=== PATIENT | female | born 1955 | race Caucasian/White ===

== ENCOUNTER 2018-09-24 06:00 | Day surgery (SDC) | payer MEDICARE, OTHER ==
[~2018-09-24] VITALS: Ht 157.5 cm; Wt 79.8 kg
[~2018-09-24 06:00] MED LIST: ATORVASTATIN CA40 MG PO; CELECOXIB200 MG PO; EPIPEN 2-P0.3 MG/0.3 IM; FLUOXETINE HCL20 MG PO; OMEPRAZOLE20 MG PO; PREDNISONE20 MG PO; SIMVASTATIN20 MG; [UNRECOGNIZED DRUG - OTHER] PO
--- NOTE | 2018-09-24 08:00 | NUR ---
09/24/18 0800 Sera Pitt 0755-PATIENT ARRIVED TO PACU ON 8L MASK REACTIVE TO VOICE PLACED ON 3L NC PATIENT APNEIC TAKES A DEEP BREATHE WHEN INSTRUCTED EYES CLOSED. ABDOMEN SOFT.
--- NOTE | 2018-09-24 14:35 | NUR ---
PT ALERT, ORIENTED AND SUPPORTED BY HER SILVESTRE. PT SEEMS CALM, NEITHER SEEM TO HAVE CONCERNS. WOULD LIKE SOME ANSWERS, REQUESTED PRAYER, WILL FOLLOW NEEDED
--- NOTE | 2018-09-24 16:51 | OR ---
[facility] [address] [place], [place] [address] Signed DATE OF OPERATION: 09/24/2018 SURGEON: Chelsi Vidales MD PREOPERATIVE DIAGNOSES: 1. Esophageal dysphagia to solid foods. 2. Gastroesophageal reflux disease. 3. A tiny hiatal hernia. POSTOPERATIVE DIAGNOSES: 1. Mild diffuse gastritis. 2. Tiny hiatal hernia. PROCEDURES PERFORMED: EGD with CLOtest and biopsies of the antrum and GE junction. ESTIMATED BLOOD LOSS: None. INDICATIONS: Pinky is a 63-year-old female who has been having trouble with esophageal dysphagia last couple of months. She said it is mainly to solid foods and to her pills. However, she does take all her pills at once. She is very concerned because her dexcjl-sw-eke of esophageal cancer. She had a colonoscopy back in 2014, so she is familiar with endoscopy. She is happy to know there were no laxatives required for this procedure. She had been to her primary care provider and was asked to see me for the upper endoscopy. I had met with Pinky in the office and reviewed the above findings with her. We did send her for a barium swallow and she did very well. There was no aspiration. Her esophageal motility was unremarkable and she probably has just a tiny hiatal hernia. In the office, I gave her a pamphlet on upper endoscopy and we looked at that together along with the risks including, but not limited to gas bloating, crampy abdominal pain, bleeding, perforation, requiring surgery, and missed diagnosis. We also discussed the need for IV conscious sedation. She had expressed understanding and wished to proceed. DESCRIPTION OF PROCEDURE: Pinky was taken into our endoscopy suite and placed in a supine semi-recumbent position. The posterior oropharynx was anesthetized with Hurricaine spray. A bite block was utilized for the case. The adult gastroscope was introduced and advanced under direct visualization of the camera out into the third portion of the duodenum Electronically Signed By: CHELSI VIDALES MD 09/24/18 1651 PATIENT NAME: PINKY GUY OPERATIVE REPORT DATE OF : 51 REPORT #: [id number] PHYSICIAN: CHELSI VIDALES MD PCP: TWILA BATEMAN PAC REPORT IS CONFIDENTIAL AND NOT TO BE RELEASED WITHOUT AUTHORIZATION [facility] [address] [place], [place] [address] Signed without difficulty. The duodenum and pyloric channel were unremarkable. The stomach showed mild diffuse erythematous changes consistent with mild gastritis. We took a biopsy of the antrum for CLOtest as well as pathologic review. Upon retroflexion of scope, she really does not have a true hiatal hernia. A little bit of the stomach has come in on the one side, but otherwise it is fairly small. The scope was withdrawn up through the area of the GE junction, which was compliant without stricture. We saw no gastric or esophageal varices. She did have a little bit of disruption to the Z-line and some mild granulation tissue. We went and took a biopsy right at the Z-line. Her distal, middle, and upper esophagus were unremarkable. After this, the gas was suctioned out and gastroscope removed. Pinky tolerated the procedure quite well. RECOMMENDATIONS: I will see Pinky back in my office in 7 to 14 days to review her barium swallow and the upper endoscopy results. Cehlsi Vidales MD ALB/MODL /[id number] cc: SHIVANI Ventura MD Copies: CHELSI VIDALES MD ~ Electronically Signed By: CHELSI VIDALES MD 09/24/18 1651 PATIENT NAME: PINKY GUY OPERATIVE REPORT DATE OF : 51 REPORT #: [id number] PHYSICIAN: CHELSI VIDALES MD PCP: TWILA BATEMAN PAC REPORT IS CONFIDENTIAL AND NOT TO BE RELEASED WITHOUT AUTHORIZATION
== END 2018-09-24 08:45 | disposition home or self-care (01) ==
LOC: OPS 06:00 → DS 06:00 → OPS 06:45 → DS 06:45 → OPS 08:45
PROVIDERS: Colon & Rectal Surgery
PROC: 0DB78ZX Excision of Stomach, Pylorus, Via Natural or Artificial Opening Endoscopic, Diagnostic (ICD-10-PCS; 2018-09-24)
PROC: 0DB48ZX Excision of Esophagogastric Junction, Via Natural or Artificial Opening Endoscopic, Diagnostic (ICD-10-PCS; principal; 2018-09-24 06:45)
DX: K29.50 Unspecified chronic gastritis without bleeding (principal); K44.9 Diaphragmatic hernia without obstruction or gangrene; K21.0 Gastro-esophageal reflux disease with esophagitis; I25.10 Atherosclerotic heart disease of native coronary artery without angina pectoris; E78.5 Hyperlipidemia, unspecified; F41.9 Anxiety disorder, unspecified; M17.10 Unilateral primary osteoarthritis, unspecified knee; Z79.899 Other long term (current) drug therapy
CPT/HCPCS: 86677; 99153; G0500; J2250; J3010; J7120

== ENCOUNTER 2019-09-19 09:56 | Emergency (ER) | payer MEDICARE, OTHER ==
[~2019-09-19] VITALS: Ht 157.5 cm; Wt 80.3 kg
[~2019-09-19 09:56] MED LIST changes: +ASPIR 8181 MG PO; +ASPIRIN EC325 MG PO; +GABAPENTIN600 MG PO; +OMEGA 3 1,0001 EACH PO; +OXYCODONE HCL5 MG PO; +SENNA LAX8.6 MG PO; +VITAMIN D250 MCG PO; -[UNRECOGNIZED DRUG - OTHER] PO
--- OUTSIDE RECORDS SUMMARY | 2019-09-19 10:00 | XMS ---
PreManage Notification: PINKY GUY Security In Classroom Tutor Events No recent Security Events currently on file CRITERIA MET - [facility] CARE PROVIDERS Laureano Arshad Treatment Current PHONE: Unknown Ta [place] Rosemarie Current Orthopedic Surgery \T\ Fracture Clinic PHONE: Unknown Yasmin has no Care Guidelines for this patient. Sonja VISIT COUNT (12 MO.) Mirta Marie TOTAL 1 NOTE: Visits indicate total known visits. ED/UCC VISIT TRACKING (12 MO.) 09/19/2019 09:[address] [facility] OR TYPE: Emergency COMPLAINT: - HEAVINESS CHEST AND ARMS INPATIENT VISIT TRACKING (12 MO.) No inpatient visits to display in this time frame [email or web address]
--- NOTE | 2019-09-20 16:36 | EKG ---
[facility] [address] [facility] [place], [place] [address] Signed Normal sinus rhythm Normal ECG Confirmed by PASTORA HSIEH MD ([id number]) on 09/20/2019 4:35:56 PM Electronically Signed By: PASTORA HSIEH MD 09/20/19 1636 PATIENT NAME: PINKY GUY JANELL Electrocardiogram DATE OF : 51 PHYSICIAN: PASTORA HSIEH MD REPORT #: [id number] REPORT IS CONFIDENTIAL AND NOT TO BE RELEASED WITHOUT AUTHORIZATION
== END 2019-09-19 14:45 | disposition home or self-care (01) ==
LOC: ED 09:56
DX: R07.89 Other chest pain (principal); R06.02 Shortness of breath; Z79.899 Other long term (current) drug therapy; Z79.82 Long term (current) use of aspirin
CPT/HCPCS: 36415; 71045; 71260; 80053; 83880; 84484; 85025; 85379; 93005; 93010; 93971; 99285-25; Q9967

== ENCOUNTER 2020-08-10 07:43 | Day surgery (SDC) | payer MEDICARE, OTHER ==
[~2020-08-10] VITALS: Ht 157.5 cm; Wt 83.6 kg
[~2020-08-10 07:43] MED LIST changes: +CALCIUM500 MG PO; +DRY EYE OMEGA1 EACH PO; +OLIVE LEAF EXT250 MG PO; +PHILLIPS' COLO1 EACH PO
--- NOTE | 2020-08-10 09:12 | NUR ---
08/10/20 0912 Reva Mac 0909 PATIENT ARRIVES TO PACU SLEEPING. OPENS EYES WITH VERBAL STIMULI. BACK TO SLEEP WHEN NOT STIMULATED. RESP EVEN AND UNLABORED, NC AT 3 LITERS.
--- NOTE | 2020-08-10 09:58 | OR ---
[facility] [address] [place], [place] [address] Signed DATE OF OPERATION: 08/10/2020 SURGEON: Chelsi Vidales MD PREOPERATIVE DIAGNOSES: 1. Personal history of colonic poly[place] [address] Slater. 2. Melanosis coli. 3. Chronic constipation. POSTOPERATIVE DIAGNOSES: 1. Severe melanosis coli. 2. Minimal internal hemorrhoids. PROCEDURE: Colonoscopy with cold biopsy x1, proximal right colon. ESTIMATED BLOOD LOSS: None. INDICATIONS: Pinky is a 65-year-old female, asked to see me for followup colonoscopy. In 2014, she had an adenomatous polyp removed with Dr. Slater. She has also described melanosis coli. She describes constipation her whole life. She has switched over to a Valdes' Colon cleanse. She tells me she has no lower GI complaints. She said her dad lived to be 95. There is no family history of colon cancer or polyps. I gave her a pamphlet in the office on colonoscopy and we looked at that together along with the risks including, but not limited to gas bloating, crampy abdominal pain, bleeding, perforation requiring surgery, and missed diagnosis. We also discussed the need for IV conscious sedation. She had expressed understanding and wished to proceed. PROCEDURE NOTE: Pinky was taken into the endoscopy suite and placed in the left lateral decubitus position. She was given 3 mg of Versed and 100 mcg of fentanyl to cover the case. A digital rectal exam was performed and this was unremarkable. The adult colonoscope was introduced and advanced all around into the cecum under direct visualization of camera without difficulty. We can easily see her moderate to severe melanosis coli from the rectum all the way back to the cecum. We had taken pictures throughout for photodocumentation. We took a single biopsy of the proximal right colon with a cold biopsy forceps for pathologic review. There were no polyps noted. No diverticulosis. The scope had been retroflexed in the rectum. She does have minimal internal hemorrhoid Electronically Signed By: CHELSI VIDALES MD 08/10/20 0958 PATIENT NAME: PINKY GUY OPERATIVE REPORT DATE OF : 51 REPORT #: [id number] PHYSICIAN: CHELSI VIDALES MD PCP: YARELIS TRAN PA-C REPORT IS CONFIDENTIAL AND NOT TO BE RELEASED WITHOUT AUTHORIZATION [facility] [address] [place] [id number] Signed columns. After this, the gas was suctioned out and colonoscope removed. Pinky tolerated the procedure quite well. RECOMMENDATIONS: I will see Pinky back in my office in 7 to 14 days to review her results. She should consider discontinuing Valdes' Colon cleanse and moving toward a fiber product with MiraLAX as well. Chelsi Vidales MD ALB/DAQUANL /[id number] cc: MD Yarelis Otoole PA-C Copies: CHELSI VIDALES MD, CHLOE K PA-C ~ Electronically Signed By: CHELSI VIDALES MD 08/10/20 0958 PATIENT NAME: PINKY GUY JANELL OPERATIVE REPORT DATE OF : 51 REPORT #: [id number] PHYSICIAN: CHELSI VIDALES MD PCP: YARELIS TRAN PA-C REPORT IS CONFIDENTIAL AND NOT TO BE RELEASED WITHOUT AUTHORIZATION
== END 2020-08-10 09:45 | disposition home or self-care (01) ==
LOC: OPS 07:43 → DS 07:43 → OPS 09:00
PROVIDERS: ATTEND Colon & Rectal Surgery
PROC: 0DBH8ZX Excision of Cecum, Via Natural or Artificial Opening Endoscopic, Diagnostic (ICD-10-PCS; principal; 2020-08-10 09:00)
DX: K63.89 Other specified diseases of intestine (principal); D12.2 Benign neoplasm of ascending colon; K59.09 Other constipation; K64.8 Other hemorrhoids; E78.5 Hyperlipidemia, unspecified; R03.0 Elevated blood-pressure reading, without diagnosis of hypertension; F41.9 Anxiety disorder, unspecified; I25.10 Atherosclerotic heart disease of native coronary artery without angina pectoris; K21.00 Gastro-esophageal reflux disease with esophagitis, without bleeding; M17.10 Unilateral primary osteoarthritis, unspecified knee; M85.80 Other specified disorders of bone density and structure, unspecified site; Z86.010 Personal history of colon polyps
CPT/HCPCS: 88305; 99153; G0500; J0690; J2250; J3010; J7121

== ENCOUNTER 2021-05-27 09:51 | Emergency (ER) | payer MEDICARE, OTHER ==
[~2021-05-27] VITALS: Ht 157.5 cm; Wt 83.5 kg
[2021-05-27] MEDS ORDERED: ONDANSETRON ODT4 MG PO (10:15)
[2021-05-27] MEDS ORDERED: BENZONATATE100 MG PO (10:15)
[2021-05-27] MEDS ORDERED: VENTOLIN HFA18 GM INH (13:29)
[2021-05-27] MEDS ORDERED: GUAIFEN-CODEINE10 ML PO (13:29)
[2021-05-27] MEDS ORDERED: PREDNISONE20 MG PO (13:29)
--- NOTE | 2021-05-30 13:39 | EKG ---
[facility] [address] [facility] [place], [place] [address] Signed Normal sinus rhythm Normal ECG When compared with ECG of 19-SEP-2019 10:03, No significant change was found Confirmed by PASTORA HSIEH MD ([id number]) on 05/30/2021 1:39:02 PM Electronically Signed By: PASTORA HSIEH MD 05/30/21 1339 PATIENT NAME: ALBA GUYHaylee MACIEL Electrocardiogram DATE OF : 51 PHYSICIAN: PASTORA HSIEH MD REPORT #: [id number] REPORT IS CONFIDENTIAL AND NOT TO BE RELEASED WITHOUT AUTHORIZATION
== END 2021-05-27 14:00 | disposition home or self-care (01) ==
LOC: ED 09:51
DX: U07.1 COVID-19 (principal); J12.82 Pneumonia due to coronavirus disease 2019; E78.00 Pure hypercholesterolemia, unspecified; Z79.82 Long term (current) use of aspirin; Z79.899 Other long term (current) drug therapy
CPT/HCPCS: 71045; 71260; 80053; 84484; 85025; 85379; 93005; 93010; 94640; 99285-25; C9803; J1100; J7030; Q9967; U0003

== ENCOUNTER 2024-11-03 06:58 | Day surgery (SDC) | payer MEDICARE, OTHER ==
[2024-10-28 13:50] VITALS: BP 171/79
[~2024-11-03] VITALS: Ht 157.5 cm; Wt 77.3 kg
[~2024-11-03 06:58] MED LIST changes: +BAYER CHEWABLE81 MG PO; +BENZONATATE100 MG PO; +CEFUROXIME500 MG PO; +COZAAR25 MG PO; +GUAIFEN-CODEINE10 ML PO; +LACTATED RINGER'S 1,000 ML IV SCH; +NAPROSYN500 MG PO; +ONDANSETRON ODT4 MG PO; +Ropivacaine HCl 20 MG/10 ML AMP ONE; +SODIUM CHLORIDE 0.9% 500 ML IV ONE; +VENTOLIN HFA18 GM INH
[2024-11-03] MEDS ORDERED: ROPIVACAINE IN 0.9% SOD CHL/PF 545 ML ELS.PMP.HR IRRIGATION SCH (07:00)
[2024-11-03] MEDS ORDERED: GABAPENTIN 600 MG TAB PO SCH (07:00)
[2024-11-03] MEDS ORDERED: IBLOOD GLUCOSE TEST STRIP 1 EA TEST VI PRN ×2 (07:00→10:45)
[2024-11-03] MEDS ORDERED: INTRA-ARTICULAR ANALGESIC INJECTION XX SCH (07:00)
[2024-11-03] MEDS ORDERED: ondansetron HCL 4 MG TAB PO SCH (07:00)
[2024-11-03] MEDS ORDERED: CEFAZOLIN SODIUM 2 GM/20 ML SYR IV SCH ×2 (07:00→17:00)
[2024-11-03] MEDS ORDERED: OXYCODONE HCL 5 MG TAB PO SCH (07:00)
[2024-11-03] MEDS ORDERED: TRANEXAMIC ACID IN NACL,ISO-OS 1,000 MG/100 ML PIGGYBACK IV SCH ×2 (07:00→12:00)
[2024-11-03] MEDS ORDERED: LIDOCAINE HCL 1% 5 ML SDV INJ ONE (07:00)
[2024-11-03] MEDS ORDERED: PANTOPRAZOLE SODIUM 40 MG TABEC PO SCH (07:00)
[2024-11-03 07:19] VITALS: BP 153/72
[2024-11-03] MEDS ORDERED: MIDAZOLAM HCL 2 MG/2 ML VIAL ONE (08:15)
[2024-11-03] MEDS ORDERED: propofoL 200 MG/20 ML VIAL ONE (08:16)
[2024-11-03] MEDS ORDERED: dexmedeTOMIDine HCl 200 MCG/2 ML VIAL ONE (08:16)
[2024-11-03] MEDS ORDERED: DEXAMETHASONE SOD PHOS 4 MG/ML VIAL ONE (08:16)
[2024-11-03] MEDS ORDERED: ondansetron HCL 4 MG/2 ML VIAL ONE (08:16)
[2024-11-03] MEDS ORDERED: SODIUM CHLORIDE 0.9% 40 ML IV ONE (08:20)
[2024-11-03] MEDS ORDERED: LIDOCAINE HCL 2% 5 ML SDV ONE (08:20)
[2024-11-03] MEDS ORDERED: Ropivacaine HCl 0.5% 30 ML VIAL ONE (08:20)
[2024-11-03] MEDS ORDERED: KETOROLAC TROMETHAMINE 15 MG/ML VIAL IV PRN (08:45)
[2024-11-03] MEDS ORDERED: OXYCODONE HCL 5 MG TAB PO PRN (08:45)
[2024-11-03] MEDS ORDERED: ASPIRIN 325 MG TAB PO SCH (09:00)
[2024-11-03] MEDS ORDERED: ePHEDrine sulfate 50 MG/ML AMP ONE (09:54)
[2024-11-03] MEDS ORDERED: ACETAMINOPHEN 1,000 MG/100 ML VIAL ONE (10:38)
[2024-11-03] MEDS ORDERED: CEFUROXIME250 MG PO (10:41)
[2024-11-03] MEDS ORDERED: DICLOFENAC SODI75 MG PO (10:41)
[2024-11-03] MEDS ORDERED: ASPIRIN325 MG PO (10:41)
[2024-11-03] MEDS ORDERED: OXYCODONE HCL5 MG PO (10:41)
[2024-11-03] MEDS ORDERED: SENNA LAX8.6 MG PO (10:42)
[2024-11-03] MEDS ORDERED: GABAPENTIN300 MG PO (10:42)
[2024-11-03] MEDS ORDERED: fentaNYL citrate 50 MCG/ML SDV IV PRN (10:45)
[2024-11-03] MEDS ORDERED: ondansetron HCL 4 MG/2 ML VIAL IV PRN (10:45)
[2024-11-03] MEDS ORDERED: HYDROmorphone HCL 1 MG/ML SYR IV PRN (10:45)
[2024-11-03] MEDS ORDERED: KETOROLAC TROMETHAMINE 30 MG/ML VIAL IV PRN (10:45)
[2024-11-03] MEDS ORDERED: NALOXONE HCL 0.4 MG SYR IV PRN (10:45)
[2024-11-03 11:59] VITALS: BP 151/62
--- NOTE | 2024-11-03 12:52 | OR ---
[facility] [facility] [address] [place], [place] [address] Signed DATE OF OPERATION: 11/03/2024 SURGEON: Barbara Arshad MD PREOPERATIVE DIAGNOSIS: Left knee degenerative joint disease. POSTOPERATIVE DIAGNOSIS: Left knee degenerative joint disease. PROCEDURE PERFORMED: Left total knee arthroplasty with Tonny. BODY WIRER: Kellie Lainez PA-C. Kellie was present and critical for all portions of procedure. ANESTHESIA: Spinal. BLOOD LOSS: 200 mL. IMPLANTS: Henny Triathlon size 3, 11 mm polyethylene, and 32 mm patella. BRIEF HISTORY: Pinky is a 69-year-old woman with progressive worsening of oroo-xl-etzz arthritis in medial compartment. Risks and benefits of operative treatment were discussed with her and she elected to proceed. DESCRIPTION OF PROCEDURE: Once consent was obtained, she was taken to the operating room. After adequate anesthesia, she was placed on operating table with a left hip bump. The leg was prepped and draped in a standard sterile fashion and the knee was approached through standard anterior midline incision. The skin flaps were developed medially and laterally. A mid vastus approach was taken through the joint. The bleeders were cauterized as we went. The MCL was elevated as a sleeve around the posteromedial corner. The infrapatellar fat pad was excised. Anterior horns of the menisci were transected as was the ACL. PCL was found to be intact. The navigation computer arrays were placed in the distal femur and Electronically Signed By: BARBARA ARSHAD MD 11/03/24 1252 PATIENT NAME: PINKY GUY OPERATIVE REPORT DATE OF : 51 REPORT #: [id number] PHYSICIAN: BARBARA ARSHAD MD PCP: DONIS GUIDRY PAC REPORT IS CONFIDENTIAL AND NOT TO BE RELEASED WITHOUT AUTHORIZATION [facility] [address] [place], [place] [address] Signed proximal tibia. The leg was then registered with the computer as were the fine anatomic points of the knee. Ligamentous testing was then undertaken. Slight adjustments were made to the computer plan. The robot was then brought in. The four straight cuts and two angle cuts were made with care taken to protect the patellar tendon and MCL. The bony remnants were removed as were any remaining osteophytes. The posterior osteophytes were removed off the femur. No release was performed. The trials were then positioned with 11 mm polyethylene. The knee was taken from 0-130 degrees with excellent stability throughout. The patella tracked well. The patella was then cut, sized, and drilled for 32 mm patella. The distal femoral drill holes were completed. The proximal tibia was completed using the keel punch followed by the drill guide. The components were obtained. The tibia was then impacted until it was seated flush. The polyethylene was snapped into position and the femur was impacted. The knee was extended and loaded. The patella was clamped until it was seated well. Again, patellar tracking was checked, found to be good. The knee was irrigated using 1 bottle of Surgiphor followed by normal saline. Periarticular soft tissue was injected with 100 mL of ropivacaine and Toradol mixture. The On-Q pain pump was percutaneously placed into the adductor canal. The arthrotomy was then closed using a combination of #2 FiberWire and #2 Stratafix. The subcutaneous tissue with 0 Stratafix and skin with 3-0. The skin was then sealed with LiquiBand and Steri-Strips. The wound was dressed with Acticoat-7 dressing, ABD, and Jad wrap. She tolerated the procedure well. All sponge, needle, and instrument counts were correct. Barbara Arshad MD BA/MODL /[id number] Copies: ~ Electronically Signed By: BARBARA ARSHAD MD 11/03/24 1252 PATIENT NAME: PINKY GUY OPERATIVE REPORT DATE OF : 51 REPORT #: [id number] PHYSICIAN: BARBARA ARSHAD MD PCP: DONIS GUIDRY [facility] REPORT IS CONFIDENTIAL AND NOT TO BE RELEASED WITHOUT AUTHORIZATION
[2024-11-03 13:26] VITALS: BP 140/77
[2024-11-03] MEDS ORDERED: CEFAZOLIN SODIUM 2 GM/20 ML SYR ONE (14:17)
[2024-11-03 14:23] VITALS: BP 141/62
[2024-11-03 14:26] VITALS: BP 156/71
[2024-11-03] MEDS ORDERED: GABAPENTIN 300 MG CAP PO SCH (15:00)
[2024-11-03] MEDS ORDERED: SENNOSIDES 1 TAB PO SCH (21:00)
[2024-11-04] MEDS ORDERED: DICLOFENAC SOD 75 MG TABEC PO SCH (08:00)
[2024-11-04] MEDS ORDERED: cefuroxime axetiL 250 MG TAB PO SCH (09:00)
== END 2024-11-03 14:45 | disposition home or self-care (01) ==
LOC: DS 06:58
PROVIDERS: ATTEND Specialist
PROC: 0SRD0JZ Replacement of Left Knee Joint with Synthetic Substitute, Open Approach (ICD-10-PCS; principal; 2024-11-03 09:05)
DX: M17.12 Unilateral primary osteoarthritis, left knee (principal); K21.9 Gastro-esophageal reflux disease without esophagitis; E78.00 Pure hypercholesterolemia, unspecified; Z79.899 Other long term (current) drug therapy
CPT/HCPCS: 01400; 64447; 64450; 64454; 73560; 76942; 97161; 97530; A9270; C1776; J0131; J0690; J1100; J2003; J2250; J2405; J2704; J2795; J7040; J7121; J7999

== ENCOUNTER 2025-06-25 05:24 | Emergency (ER) | payer MEDICARE, OTHER ==
[~2025-06-25] VITALS: Ht 157.5 cm; Wt 81.6 kg
[~2025-06-25 05:24] MED LIST changes: +ASPIRIN325 MG PO; +CEFUROXIME250 MG PO; +DICLOFENAC SODI75 MG PO; +GABAPENTIN300 MG PO; -LACTATED RINGER'S 1,000 ML IV SCH; -Ropivacaine HCl 20 MG/10 ML AMP ONE; -SODIUM CHLORIDE 0.9% 500 ML IV ONE
[2025-06-25] MEDS ORDERED: ASPIRIN 81 MG CHEW PO ONE (05:45)
[2025-06-25] MEDS ORDERED: NITROGLYCERIN 0.4 MG SUBL SL PRN (05:45)
[2025-06-25 05:51] LABS: BASOPHILS 0.6 % (0.1-1.2); EOSINOPHILS 5.8 % (0.7-5.8); LYMPHOCYTES 32.7 % (19.3-51.7); MCH 28.9 PG (25.6-32.2); MCHC 32.2 g/dL (32.2-35.5); MCV 89.8 fL (79.4-94.8); MONOCYTES 7.6 % (4.7-12.5); NEUTROPHILS 53.0 % (34.0-71.1); RBC 4.63 M/uL (3.93-5.22)
[2025-06-25] MEDS ORDERED: FAMOTIDINE 20 MG/ 2 ML VIAL IV ONE (06:00)
[2025-06-25 06:24] LABS: ALT (SGPT) 33.0 U/L (14-59); AST (SGOT) 23.0 U/L (15-37); GLOMERULAR FILTRATION RATE,EST 95.0 mL/min (>60); PROTEIN, TOTAL 7.3 g/dL (6.4-8.2); UREA NITROGEN 11.0 mg/dL (7-18)
[2025-06-25] MEDS ORDERED: LORazepam 2 MG/ML VIAL IV ONE (07:00)
[2025-06-25 08:34] VITALS: BP 144/68
--- NOTE | 2025-06-26 22:16 | EKG ---
[facility] [address] [facility] [place] [address] Signed Normal sinus rhythm Normal ECG When compared with ECG of 08-OCT-2024 13:52, No significant change was found Confirmed by Ben Huizar MD () on 06/26/2025 10:16:29 PM Electronically Signed By: BEN HUIZAR MD 06/26/25 2216 PATIENT NAME: PINKY GUY JANELL Electrocardiogram DATE OF : 51 PHYSICIAN: BEN HUIZAR MD REPORT #: [id number] REPORT IS CONFIDENTIAL AND NOT TO BE RELEASED WITHOUT AUTHORIZATION
== END 2025-06-25 08:35 | disposition home or self-care (01) ==
LOC: ED 05:24
PROVIDERS: Internal Medicine
DX: R07.89 Other chest pain (principal); I10 Essential (primary) hypertension; K21.9 Gastro-esophageal reflux disease without esophagitis; Z79.82 Long term (current) use of aspirin
CPT/HCPCS: 36415; 71275; 74174; 80053; 83735; 83880; 84484; 85025; 85379; 93005; 93010; 96374; 96375; 99285-25; A9270; J2060; J2405; Q9967